=== PATIENT | female | born 1990 | race Caucasian/White ===

== ENCOUNTER 2021-07-26 14:49 | Emergency (ER) | payer OTHER ==
[~2021-07-26] VITALS: Ht 152.4 cm; Wt 79.0 kg
[2021-07-26] MEDS ORDERED: LORazepam 2 MG/ML VIAL IM ONE (15:15)
[2021-07-26 16:15] VITALS: BP 145/80
== END 2021-07-26 16:48 | disposition home or self-care (01) ==
LOC: EMS 14:53
DX: F41.9 Anxiety disorder, unspecified (principal); Z88.1 Allergy status to other antibiotic agents; Z88.8 Allergy status to other drugs, medicaments and biological substances
CPT/HCPCS: 96372; 99283; J2060

== ENCOUNTER 2022-10-17 08:33 | Emergency (ER) | payer BC, OTHER ==
[~2022-10-17] VITALS: Ht 152.4 cm; Wt 75.0 kg
[2022-10-17] MEDS ORDERED: CARISOPRODOL 350 MG TABLET PO ONE (10:45)
[2022-10-17] MEDS ORDERED: GABAPENTIN 300 MG CAPSULE PO ONE (10:45)
[2022-10-17 11:16] LABS: ANION GAP 7 mmol/L (8-16); BASOPHILS % (AUTO) 0.4 % (0.0-2.0); CALCIUM, TOTAL 8.5 mg/dL (8.8-10.5); CARBON DIOXIDE 27 mmol/L (22-29); CHLORIDE 107 mmol/L (98-107); CREATININE 0.75 mg/dL (0.60-1.30); EOSINOPHILS % (AUTO) 1.8 % (1.0-6.0); GLOMERULAR FILTR. RATE CALC > 60 mL/min (>60); GLUCOSE,RANDOM 102 mg/dL (70-110); HEMATOCRIT 39.9 % (36-46); HEMOGLOBIN 13.6 g/dL (12.0-16.0); LYMPHOCYTES % (AUTO) 38.6 % (22.0-44.0); MEAN CORPUSCULAR HGB CONC 34.1 G/dL (31.0-37.0); MEAN CORPUSCULAR VOLUME 91 fL (80-100); MONOCYTES # (AUTO) 0.5 K/uL (0.1-1.0); NEUTROPHILS # (AUTO) 4.1 K/uL (1.8-7.7); NEUTROPHILS % (AUTO) 53.2 % (40.0-70.0); PLATELET COUNT (AUTO) 223 K/uL (150-450); POTASSIUM 4.2 mmol/L (3.5-5.1); RED BLOOD CELL COUNT(AUTO) 4.38 MIL/uL (4.00-5.20); RED CELL DISTRIBUTION WIDTH 12.6 % (11.5-14.5); SODIUM SERUM 141 mmol/L (136-145)
[2022-10-17 11:23] LABS: ALANINE AMINOTRANSFERASE 17 U/L (12-78); ALBUMIN 3.5 g/dL (3.4-5.0); ALKALINE PHOSPHATASE 53 U/L (46-116); ASPARTATE AMINOTRANSFERASE 22 U/L (15-37); BILIRUBIN,TOTAL 0.3 mg/dL (0.1-1.0); TOTAL PROTEIN, SERUM 6.7 g/dL (6.4-8.2)
[2022-10-17] MEDS ORDERED: LORazepam 2 MG/ML VIAL IVP ONE (12:15)
[2022-10-17] MEDS ORDERED: MORPHINE SULFATE 4 MG/ML SYRINGE IM ONE (12:15)
[2022-10-17] MEDS ORDERED: LORazepam 1 MG TABLET PO ONE (12:30)
[2022-10-17] MEDS ORDERED: CARI-493 PO (14:07)
[2022-10-17] MEDS ORDERED: GABA-1181 PO (14:07)
[2022-10-17] MEDS ORDERED: OxyCODONE HCL 5 MG IR TABLET PO ONE (16:30)
[2022-10-17 17:13] VITALS: BP 132/70
== END 2022-10-17 17:15 | disposition home or self-care (01) ==
LOC: EMS 08:45
DX: M54.50 Low back pain, unspecified (principal); J45.909 Unspecified asthma, uncomplicated; F41.9 Anxiety disorder, unspecified; F32.A Depression, unspecified; Z88.8 Allergy status to other drugs, medicaments and biological substances
CPT/HCPCS: 99285; 72148; 72131; 80053; 85025; 36415; 96372; J2270

== ENCOUNTER 2023-01-23 12:54 | Emergency (ER) | payer OTHER, BC ==
[~2023-01-23] VITALS: Ht 152.4 cm; Wt 75.0 kg
[~2023-01-23 12:54] MED LIST: CARI-493 PO; GABA-1181 PO
[2023-01-23 13:00] VITALS: TEMP 98.5
[2023-01-23 14:25] VITALS: BP 128/77; PULSE 92; RESP 16
== END 2023-01-23 15:01 | disposition home or self-care (01) ==
LOC: EMS 12:58
DX: T18.108A Unspecified foreign body in esophagus causing other injury, initial encounter (principal); F41.9 Anxiety disorder, unspecified; J45.909 Unspecified asthma, uncomplicated; F32.A Depression, unspecified; Z88.8 Allergy status to other drugs, medicaments and biological substances; Z91.018 Allergy to other foods
CPT/HCPCS: 70360; 99283

== ENCOUNTER 2023-05-24 09:48 | Emergency (ER) | payer OTHER, BC ==
[~2023-05-24] VITALS: Ht 152.4 cm; Wt 77.3 kg
[2023-05-24 09:58] VITALS: TEMP 98.3
[2023-05-24 10:25] LABS: COVID AG,FIA SOURCE NASAL SWAB
[2023-05-24 10:48] LABS: INFLUENZA TYPE A NEGATIVE FOR TYPE A (NEGATIVE); INFLUENZA TYPE B NEGATIVE FOR TYPE B (NEGATIVE)
[2023-05-24] MEDS ORDERED: ETON1VAG10 VG (11:25)
[2023-05-24] MEDS ORDERED: FLUT1BLS9 IH (11:25)
[2023-05-24] MEDS ORDERED: ALBUTEROL SULFATE 2.5 MG/0.5 ML NEB SOLUTION NEB ONE ×2 (11:30→12:15)
[2023-05-24] MEDS ORDERED: IPRATROPIUM BROMIDE 0.5 MG/2.5 ML NEB SOLUTION NEB ONE (11:30)
[2023-05-24 11:32] VITALS: PULSE 89; RESP 22; O2SAT 96
[2023-05-24 11:33] VITALS: PULSE 89; RESP 22; O2SAT 95
[2023-05-24 12:13] LABS: SARS-COV2 (COVID) ANTIGEN,FIA Positive (Negative)
[2023-05-24] MEDS ORDERED: DEXAMETHASONE SOD PHOS 4 MG/ML 5 ML VIAL IM ONE (12:15)
[2023-05-24 12:50] VITALS: PULSE 82; RESP 16; O2SAT 97
[2023-05-24] MEDS ORDERED: NIRM1TAB10 PO (13:27)
[2023-05-24 13:38] VITALS: BP 119/72; PULSE 97; RESP 20
== END 2023-05-24 13:44 | disposition home or self-care (01) ==
LOC: EMS 10:17
DX: U07.1 COVID-19 (principal); J45.909 Unspecified asthma, uncomplicated; F41.9 Anxiety disorder, unspecified; F32.A Depression, unspecified; Z88.8 Allergy status to other drugs, medicaments and biological substances
CPT/HCPCS: 99284; 71045; 87426; 87804; 94640; 96372; J1100; J7613

== ENCOUNTER 2023-07-08 09:06 | Emergency (ER) | payer BC, OTHER ==
[~2023-07-08] VITALS: Ht 154.9 cm; Wt 77.7 kg
[~2023-07-08 09:06] MED LIST changes: +ETON1VAG10 VG; +FLUT1BLS9 IH; +NIRM1TAB10 PO
[2023-07-08 09:31] VITALS: BP 119/92; PULSE 78; RESP 18; TEMP 98.2
[2023-07-08 09:56] LABS: BASOPHILS % (AUTO) 0.5 % (0.0-2.0); EOSINOPHILS % (AUTO) 2.3 % (1.0-6.0); HEMATOCRIT 41.1 % (36-46); LYMPHOCYTES % (AUTO) 41.8 % (22.0-44.0); MEAN CORPUSCULAR HEMOGLOBIN 30.4 pg (26.0-34.0); MEAN CORPUSCULAR VOLUME 89 fL (80-100); MONOCYTES # (AUTO) 0.3 K/uL (0.1-1.0); MONOCYTES % (AUTO) 4.4 % (2.0-9.0); NEUTROPHILS # (AUTO) 3.7 K/uL (1.8-7.7); PLATELET COUNT (AUTO) 303 K/uL (150-450); RED CELL DISTRIBUTION WIDTH 12.6 % (11.5-14.5); WHITE BLOOD COUNT (AUTO) 7.2 K/uL (4.5-11.0)
[2023-07-08 10:00] LABS: ANION GAP 9 mmol/L (8-16); CALCIUM, TOTAL 9.4 mg/dL (8.8-10.5); CARBON DIOXIDE 27 mmol/L (22-29); CHLORIDE 104 mmol/L (98-107); CREATININE 0.69 mg/dL (0.60-1.30); GLOMERULAR FILTR. RATE CALC > 60 mL/min (>60); GLUCOSE,RANDOM 92 mg/dL (70-110); POTASSIUM 4.1 mmol/L (3.5-5.1); SODIUM SERUM 140 mmol/L (136-145); UREA NITROGEN, BLOOD 10 mg/dL (7-18)
[2023-07-08 10:12] LABS: HCG,QUANTITATIVE 863 mIU/mL (0-6)
== END 2023-07-08 13:08 | disposition home or self-care (01) ==
LOC: EMS 09:06
DX: O20.0 Threatened abortion (principal); M54.50 Low back pain, unspecified; F41.9 Anxiety disorder, unspecified; J45.909 Unspecified asthma, uncomplicated; F32.A Depression, unspecified; Z98.890 Other specified postprocedural states; Z88.8 Allergy status to other drugs, medicaments and biological substances; Z3A.01 Less than 8 weeks gestation of pregnancy
CPT/HCPCS: 76805; 80048; 84702; 85025; 99284

== ENCOUNTER 2024-10-22 09:48 | Inpatient (IN) | payer BC, OTHER ==
[~2024-10-22] VITALS: Ht 162.6 cm; Wt 90.9 kg
[2024-10-22 09:49] VITALS: TEMP 98.4
[2024-10-22] MEDS ORDERED: SODIUM CHLORIDE 0.9% 100 ML ONE (10:19)
[2024-10-22] MEDS ORDERED: IOHEXOL 350 MG/ML 100 ML VIAL ONE (10:19)
[2024-10-22 10:22] LABS: BASOPHILS % (AUTO) 0.4 % (0.0-2.0); EOSINOPHILS % (AUTO) 2.7 % (1.0-6.0); HEMATOCRIT 40.3 % (36-46); HEMOGLOBIN 13.7 g/dL (12.0-16.0); LYMPHOCYTES # (AUTO) 2.3 K/uL (1.0-4.8); LYMPHOCYTES % (AUTO) 41.2 % (22.0-44.0); MEAN CORPUSCULAR HEMOGLOBIN 29.6 pg (26.0-34.0); MEAN CORPUSCULAR VOLUME 87 fL (80-100); MONOCYTES # (AUTO) 0.3 K/uL (0.1-1.0); NEUTROPHILS # (AUTO) 2.8 K/uL (1.8-7.7); NEUTROPHILS % (AUTO) 50.7 % (40.0-70.0); PLATELET COUNT (AUTO) 211 K/uL (150-450); RED BLOOD CELL COUNT(AUTO) 4.62 MIL/uL (4.00-5.20); RED CELL DISTRIBUTION WIDTH 13.2 % (11.5-14.5); WHITE BLOOD COUNT (AUTO) 5.5 K/uL (4.5-11.0)
[2024-10-22] MEDS: MORPHINE SULFATE 2 MG/ML SYRINGE IVP ONE ×2 (10:36→12:27)
[2024-10-22] MEDS: KETOROLAC TROMETHAMINE 30 MG/ML VIAL IVP ONE (10:36)
[2024-10-22 10:37] LABS: ANION GAP 8 mmol/L (8-16); CALCIUM, TOTAL 8.7 mg/dL (8.8-10.5); CARBON DIOXIDE 25 mmol/L (22-29); CHLORIDE 107 mmol/L (98-107); CREATININE 0.85 mg/dL (0.60-1.30); GLOMERULAR FILTR. RATE CALC > 60 mL/min (>60); GLUCOSE,RANDOM 117 mg/dL (70-110); SODIUM SERUM 140 mmol/L (136-145); UREA NITROGEN, BLOOD 11 mg/dL (7-18)
[2024-10-22 10:43] LABS: ALBUMIN 3.8 g/dL (3.4-5.0); BILIRUBIN,DIRECT 0.1 mg/dL (0.00-0.20); BILIRUBIN,TOTAL 0.6 mg/dL (0.1-1.0); TOTAL PROTEIN, SERUM 6.7 g/dL (6.4-8.2)
[2024-10-22 11:31] LABS: APPEARANCE,URINE CLEAR (CLEAR); BILIRUBIN,URINE NEGATIVE (NEGATIVE); COLOR,URINE YELLOW (YELLOW); GLUCOSE, URINE (UA) NEGATIVE (NEGATIVE); KETONES,URINE NEGATIVE (NEGATIVE); LEUKOCYTE ESTERASE ,URINE LARGE (NEGATIVE); NITRATE,URINE NEGATIVE (NEGATIVE); OCCULT BLOOD,URINE NEGATIVE (NEGATIVE); PH,URINE 5.5 (5.0-8.0); PROTEIN,URINE NEGATIVE (NEGATIVE); SPECIFIC GRAVITIY, URINE 1.027 (1.003-1.030); UROBILINOGEN,URINE <=1.0 mg/dL (<=1.0)
[2024-10-22 11:57] LABS: RBC,URINE 0-2 /HPF (0-2)
[2024-10-22 11:58] LABS: BACTERIA,URINE Moderate /HPF (None Seen); SQUAMOUS EPITHELIAL CELL,UR Moderate /LPF (None Seen)
[2024-10-22] MEDS: LEVOFLOXACIN 750 MG/D5% WATER 150 ML IV ONE (12:28)
[2024-10-22] MEDS ORDERED: ONDANSETRON HCL 4 MG/2 ML VIAL IVP PRN (14:30)
[2024-10-22] MEDS ORDERED: ACETAMINOPHEN 325 MG TABLET PO PRN (14:30)
[2024-10-22] MEDS ORDERED: ZOLPIDEM TARTRATE 5 MG TABLET PO PRN (14:30)
[2024-10-22] MEDS ORDERED: OxyCODONE HCL/ACETAMINOPHEN 5-325 MG TABLET PO PRN (14:30)
[2024-10-22] MEDS ORDERED: MAGNESIUM HYDROXIDE SUSPENSION 30 ML UDCUP PO PRN (14:30)
[2024-10-22] MEDS: HEPARIN SODIUM,PORCINE 5,000 UNITS/ML VIAL SQ SCH (15:38)
[2024-10-22] MEDS: GABAPENTIN 300 MG CAPSULE PO SCH (15:39)
[2024-10-22 18:00] VITALS: BP 118/83; PULSE 65; RESP 15; O2SAT 98
[2024-10-22] MEDS ORDERED: DOCUSATE SODIUM 100 MG CAPSULE PO SCH (21:00)
[2024-10-23] MEDS ORDERED: CIPROFLOXACIN HCL 250 MG TABLET PO SCH (09:00)
[2024-10-23] MEDS ORDERED: FAMOTIDINE 20 MG TABLET PO SCH (09:00)
== END 2024-10-22 18:20 | disposition left against medical advice (07) | DRG 690 ==
LOC: EMS 09:49 → EDH 14:28 → UNDOADMIN 14:28 → 6N 14:28 → EDH 18:23
PROVIDERS: ADMIT Internal Medicine; ATTEND Internal Medicine
DX: N39.0 Urinary tract infection, site not specified (principal); G83.4 Cauda equina syndrome; E66.9 Obesity, unspecified; F32.A Depression, unspecified; F41.9 Anxiety disorder, unspecified; R53.1 Weakness; F43.10 Post-traumatic stress disorder, unspecified; J45.909 Unspecified asthma, uncomplicated; Z68.34 Body mass index [BMI] 34.0-34.9, adult; Z86.16 Personal history of COVID-19; Z87.820 Personal history of traumatic brain injury; Z88.1 Allergy status to other antibiotic agents; Z88.7 Allergy status to serum and vaccine; Z91.014 Allergy to mammalian meats
CPT/HCPCS: 70450; 72146; 72148; 74177; 80048; 80076; 81001; 83690; 84703; 85025; 87086; 96365; 96366; 96375; 96376; 99285; G0378; J1644; J1885; J1956; J2270; J7050; 36415-L1; 36415-TC